=== PATIENT | female | born 1935 ===

== ENCOUNTER → 2017-12-06 19:02 | Outpatient (REF) | payer MEDICARE, SELFPAY ==
[2017-12-06 19:28] LABS: INR 3.2 (0.9-1.3); Prothrombin Time 35.3 SECONDS (10.1-12.7)
== END ==
LOC: LAB 19:02
PROVIDERS: Visit Provider Nurse Practitioner Family
DX: I48.91 Unspecified atrial fibrillation (principal)
CPT/HCPCS: 85610

== ENCOUNTER → 2017-12-20 13:19 | Outpatient (REF) | payer MEDICARE, SELFPAY ==
[2017-12-20 13:34] LABS: INR 2.5 (0.9-1.3); Prothrombin Time 27.7 SECONDS (10.1-12.7)
== END ==
LOC: LAB 13:19
PROVIDERS: Visit Provider Nurse Practitioner Family
DX: I48.91 Unspecified atrial fibrillation (principal)
CPT/HCPCS: 85610

== ENCOUNTER → 2018-02-07 14:16 | Outpatient (REF) | payer MEDICARE, SELFPAY ==
[2018-02-07 16:52] LABS: INR 2.6 (0.9-1.3); Prothrombin Time 28.3 SECONDS (10.1-12.7)
== END ==
LOC: LAB 14:16
PROVIDERS: Visit Provider Family Medicine
DX: Z86.73 Personal history of transient ischemic attack (TIA), and cerebral infarction without residual deficits (principal)
CPT/HCPCS: 85610

== ENCOUNTER → 2018-03-14 13:30 | Outpatient (REF) | payer MEDICARE, SELFPAY ==
[2018-03-14 13:55] LABS: INR 2.4 (0.9-1.3)
== END ==
LOC: LAB 13:30
PROVIDERS: Visit Provider Nurse Practitioner Family
DX: Z51.81 Encounter for therapeutic drug level monitoring (principal)
CPT/HCPCS: 36415; 85610

== ENCOUNTER → 2018-04-16 13:27 | Outpatient (REF) | payer MEDICARE, SELFPAY ==
[2018-04-16 13:50] LABS: INR 1.8 (0.9-1.3); Prothrombin Time 21.3 SECONDS (10.1-12.7)
== END ==
LOC: LAB 13:27
PROVIDERS: Visit Provider Nurse Practitioner Family
DX: Z79.01 Long term (current) use of anticoagulants (principal)
CPT/HCPCS: 36415; 85610

== ENCOUNTER → 2018-05-02 14:07 | Outpatient (REF) | payer MEDICARE, SELFPAY ==
[2018-05-02 14:36] LABS: INR 1.8 (0.9-1.3); Prothrombin Time 21.1 SECONDS (10.1-12.7)
== END ==
LOC: LAB 14:07
PROVIDERS: Visit Provider Nurse Practitioner Family
DX: Z51.81 Encounter for therapeutic drug level monitoring (principal)
CPT/HCPCS: 85610

== ENCOUNTER → 2018-05-16 13:01 | Outpatient (REF) | payer MEDICARE, SELFPAY ==
[2018-05-16 13:19] LABS: INR 2.1 (0.9-1.3); Prothrombin Time 24.5 SECONDS (10.1-12.7)
== END ==
LOC: LAB 13:01
PROVIDERS: Visit Provider Nurse Practitioner Family
DX: Z51.81 Encounter for therapeutic drug level monitoring (principal)
CPT/HCPCS: 36415; 85610

== ENCOUNTER → 2018-06-20 15:02 | Outpatient (REF) | payer MEDICARE, SELFPAY ==
[2018-06-20 15:49] LABS: INR 2.4 (0.9-1.3); Prothrombin Time 27.5 SECONDS (10.1-12.7)
== END ==
LOC: LAB 15:02
PROVIDERS: Visit Provider Nurse Practitioner Family
DX: I10 Essential (primary) hypertension (principal)
CPT/HCPCS: 36415; 85610

== ENCOUNTER → 2018-06-25 15:39 | Outpatient (REF) | payer MEDICARE, SELFPAY ==
[2018-06-25 16:01] LABS: INR 3.1 (0.9-1.3); Prothrombin Time 36.2 SECONDS (10.1-12.7)
== END ==
LOC: LAB 15:39
PROVIDERS: Visit Provider Nurse Practitioner Family
DX: Z51.81 Encounter for therapeutic drug level monitoring (principal)
CPT/HCPCS: 85610

== ENCOUNTER → 2018-07-11 13:42 | Outpatient (REF) | payer MEDICARE, SELFPAY ==
[2018-07-11 14:28] LABS: INR 2.5 (0.9-1.3)
== END ==
LOC: LAB 13:42
PROVIDERS: Visit Provider Nurse Practitioner Family
DX: Z51.81 Encounter for therapeutic drug level monitoring (principal)
CPT/HCPCS: 36415; 85610

== ENCOUNTER → 2018-08-08 13:37 | Outpatient (ROUT) | payer MEDICARE, SELFPAY ==
[2018-08-08 14:18] LABS: INR 1.8 (0.9-1.3); Prothrombin Time 20.9 SECONDS (10.1-12.7)
== END ==
PROVIDERS: Visit Provider Nurse Practitioner Family
DX: Z51.81 Encounter for therapeutic drug level monitoring (principal)
CPT/HCPCS: 36415; 85610

== ENCOUNTER → 2018-08-13 13:19 | Outpatient (ROUT) | payer MEDICARE, SELFPAY ==
[2018-08-13 14:01] LABS: INR 1.8 (0.9-1.3); Prothrombin Time 20.8 SECONDS (10.1-12.7)
== END ==
PROVIDERS: Visit Provider Nurse Practitioner Family
DX: Z51.81 Encounter for therapeutic drug level monitoring (principal)
CPT/HCPCS: 36415; 85610